=== PATIENT | female | born 1955 | race Caucasian/White ===

== ENCOUNTER → 2017-08-13 | Outpatient (CLI) | payer MEDICAID | LOC: FIMAGING 12:52 | DX: F03.90 Unspecified dementia, unspecified severity, without behavioral disturbance, psychotic disturbance, mood disturbance, and anxiety (principal); G40.89 Other seizures; G31.9 Degenerative disease of nervous system, unspecified; R90.82 White matter disease, unspecified ==

== ENCOUNTER 2018-04-22 05:09 | Emergency (ER) | payer MEDICAID ==
[2018-04-22] MEDS ORDERED: NS 1,000 ML IV ONE (05:13)
[2018-04-22] MEDS ORDERED: LORazepam 2 MG/ML INJ IVP ONE ×2 (05:14→05:48)
--- NOTE | 2018-04-22 05:16 | EDPHY ---
H & P Source: Patient, EMS Time Seen by Provider: 04/22/18 05:14 HPI/ROS: HPI CHIEF COMPLAINT: fall out of bed, head hematoma, ?sz HISTORY OF PRESENT ILLNESS: 62-year-old female, resides at [facility], had a fall out of bed, with head strike and then a brief 2 min generalized tonic- clonic jerking. Apparently the patient was seated in bed, the bed was position in the lowest position, She struck her head against the ground. She has a hematoma middle forehead, left eyebrow. Patient arrived to the emergency room and EMS reports that she is more confused than normal according to staff at [facility]. However the patient has advanced Alzheimer's. She is in the memory care unit. Patient has a DNR form that reveals comfort measures only. Not on any blood thinners. Past Medical History: Alzheimer's dementia, depression, cognitive impairment, Past Surgical History: No recent surgery Social History: Resides at [facility]. Memory care. Family History: Noncontributory. ROS REVIEW OF SYSTEMS: Review of systems and history extremely limited due to patient's advanced dementia. Exam Constitutional nontoxic appearing, vital signs reviewed, triage nursing summary reviewed, vital signs reviewed, awake/alert. Eyes normal conjunctivae and sclera, EOMI, PERRLA. HENT head/neck no midline neck pain or step-offs or crepitus, head exam middle forehead hematoma, left eyebrow hematoma, no large laceration, moist mucus membranes, no epistaxis, neck supple/ no meningismus, no raccoon eyes. Respiratory clear to auscultation bilaterally, normal breath sounds, no respiratory distress, no wheezing. Cardiovascular rate normal, regular rhythm, no murmur, no edema, distal pulses normal. Gastrointestinal soft, non-tender, no rebound, no guarding, normal bowel sounds, no distension, no pulsatile mass. Genitourinary no CVA tenderness. Musculoskeletal no midline vertebral tenderness, full range of motion, no calf swelling, no tenderness of extremities, no meningismus, good pulses, neurovascularly intact. Skin pink, warm, & dry, no rash, skin atraumatic. Neurologic alert and orient times 0, moves all 4 extremities equally, motor intact, sensory intact, CN II-XII intact, normal cerebellar, normal vision, normal speech. Psychiatric normal mood/affect. Heme/Lymph/Immune no lymphadenopathy. Differential Diagnosis: Includes but is not limited to in a particular order seizure, electrolyte disturbance, infection, closed-head injury, intracranial bleed, subdural, traumatic subarachnoid, skull fracture Medical Decision Making: Plan for this patient IV establishment IV fluid bolus , IV Ativan 1 mg, CT scan head without contrast CT cervical spine without contrast, chest x-ray, EKG, gentle IV fluids, Ativan for relaxation and anxiety. Re-evaluation: Trop 0.01. [facility] Nursing we touch base with them they explained that the patient fell out of bed with head strike this was witnessed. She then had a brief 2 minute seizure activity. The patient is neurological exam and mental state according to [facility] Nursing is at her baseline at this time. Chest x-ray one view: Negative for acute cardiopulmonary disease. CT scan head without contrast and CT cervical spine without contrast negative for acute bleed or traumatic injury. Called to me by Dr. Wheeler. EKG interpretation by me on record in [facility] system. Impression time of EKG 5:31 a.m., sinus rhythm rate of 94 no signs of acute ischemia no signs of cardiac arrhythmia. Patient received 2 mg IV Ativan she is sleeping at this time and comfortable. Blood work reviewed. Negative troponin. EKG nonischemic. CT scan head without contrast and CT cervical spine without contrast negative. Once she is more awake and lucid I do feel comfortable discharging her back to [facility]. She is in the memory care unit there. Has advanced dementia. (Yong Alvarez) Constitutional: Initial Vital Signs Temperature (C) 37.1 C 04/22/18 05:25 Heart Rate 96 04/22/18 05:25 Respiratory Rate 20 04/22/18 05:25 Blood Pressure 120/108 H 04/22/18 05:25 O2 Sat (%) 90 L 04/22/18 05:25 O2 Delivery Mode Room Air Allergies/Adverse Reactions: No Known Allergies Allergy (Unverified 04/22/18 05:28) Home Medications: Medication Instructions Recorded Aspirin 325 mg (*) 04/22/18 Ativan 04/22/18 Lidoderm 5% Patch 04/22/18 Lipitor 04/22/18 Multivitamin 04/22/18 PERCOCET 2.5-325 MG TABLET 04/22/18 Senna 04/22/18 VENLAFAXINE HCL 04/22/18 Zyprexa 04/22/18 Medical Decision Making ED Course/Re-evaluation: Assumed care of pateint at 7am, change of shift. Reevaled on several occasions; complaining of pain initially; given tylenol. At discharge, awake, not hypoxic, seems to be at baseline mentation as per the half-way records. DC'd to half-way after nurse to nurse report. (Amalia Flores) - Data Points Laboratory Results: Laboratory Results 04/22/18 05:15 04/22/18 05:15 Medications Given: Discontinued Medications Acetaminophen (Tylenol) 1,000 mg PO EDNOW ONE Stop: 04/22/18 07:50 Last Admin: 04/22/18 07:54 Dose: 1,000 mg Sodium Chloride (Ns) 1,000 mls @ 0 mls/hr IV EDNOW ONE; Wide Open PRN Reason: Protocol Stop: 04/22/18 05:14 Last Admin: 04/22/18 05:21 Dose: 1,000 mls Lorazepam (Ativan Injection) 1 mg IVP EDNOW ONE Stop: 04/22/18 05:15 Last Admin: 04/22/18 05:21 Dose: 1 mg Lorazepam (Ativan Injection) 1 mg IVP EDNOW ONE Stop: 04/22/18 05:49 Last Admin: 04/22/18 05:48 Dose: 1 mg Point of Care Test Results: Chemistry 04/22/18 05:28 POC Troponin I 0.01 ng/mL ng/mL (0.00-0.08) Departure - Departure Disposition: Home, Routine, Self-Care Clinical Impression: Hematoma Fall Qualifiers: Encounter type: initial encounter Qualified Code(s): W19.XXXA - Unspecified fall, initial encounter Condition: Good Instructions: Concussion (ED), Head Injury (ED), Hematoma (ED) Additional Instructions: 1. CT imaging showed no intracranial bleed or skull fracture. 2. Okay to use Tylenol as needed for facial pain. 3. Put ice to the areas of contusion on the face. 4. Return to the emergency department or seek care urgently if you have concerns regarding recurrent falling, change in mentation, development of fevers , vomiting, or other concerns. Referrals: Patient,NotPresent [Unknown] - As per Instructions
[2018-04-22 05:31] LABS: PLATELET COUNT 226 10^3/uL (150-400)
--- NOTE | 2018-04-22 06:56 | CPEKG ---
Test Reason : OPEN Blood Pressure : / mmHG Vent. Rate : 094 BPM Atrial Rate : 093 BPM P-R Int : 180 ms QRS Dur : 093 ms QT Int : 351 ms P-R-T Axes : 064 041 040 degrees QTc Int : 439 ms Sinus rhythm Confirmed by Yong Alvarez ([id number]) on 04/22/2018 6:55:47 AM Referred By: Confirmed By:Yong Alvarez
[2018-04-22] MEDS ORDERED: ACETAMINOPHEN 500 MG TAB PO ONE (07:49)
[2018-04-22 08:00] VITALS: BP 143/101
--- NOTE | 2018-04-22 17:08 | ASDISCHSUM ---
Discharge Information Plan Status:SNF Medically Cleared to Leave: Discharge Date:04/22/2018 10:21 AM CM D/C Disposition:Long Term Facility ADT D/C Disposition:Home, Routine, Self-Care Projected Discharge Date:04/22/2018 10:21 AM Transportation at D/C:ALS/BLS Discharge Delay Reason: Follow-Up Date:04/22/2018 10:21 AM Discharge Slot: Final Diagnosis: Placement Information Patient Contact Information Contact Name:FOX Relationship:Other Address:[address] [address] Work Phone: City:[place] Alternate Phone: State/Zip Code:[place] [address] Email: Financial Information Financial Class:Medicaid Primary Plan Desc:[employer] Primary Plan Number:[id number] Secondary Plan Desc: Secondary Plan Number: Assessment Information Intervention Information Intervention Type:Transportation Date of Service:04/22/2018 10:00 AM Patient Type:Emergency Room Staff Member:RAGHAV Chance, Renata Hours:0.25 Discipline:Embedded Case Manager Severity: Comment:Assisted w/completing PCS for [facility] stre tcher transport back to [facility]. PCS completed, copy provided to EMS, original to be scanned into chart .
== END 2018-04-22 10:21 | disposition home or self-care (01) ==
LOC: EDUNIT#
DX: S00.83XA Contusion of other part of head, initial encounter (principal); G30.9 Alzheimer's disease, unspecified; E86.9 Volume depletion, unspecified; W06.XXXA Fall from bed, initial encounter; Y92.128 Other place in nursing home as the place of occurrence of the external cause
CPT/HCPCS: 84484-ER; 96374; J2060